=== PATIENT | male | born 1990 | race Hispanic/Latino ===

== ENCOUNTER 2019-05-18 00:07 | Emergency (ER) | payer OTHER ==
[2019-05-18] MEDS ORDERED: ACETAMINOPHEN EXTRA STRENGTH 500 MG TABLET ONE (01:05)
== END 2019-05-18 01:08 ==
LOC: EDH 00:07
DX: R51 Headache (principal); E11.9 Type 2 diabetes mellitus without complications; Z90.49 Acquired absence of other specified parts of digestive tract
CPT/HCPCS: 70450